=== PATIENT | female | born 1995 | race Two or more races ===

== ENCOUNTER 2018-06-17 13:29 | Emergency (ER) | payer MEDICAID ==
[~2018-06-17] VITALS: Ht 154.9 cm; Wt 61.2 kg
[2018-06-17] MEDS ORDERED: Ketorolac 30mg Inj IM ONE (14:15)
--- NOTE | 2018-06-17 14:28 | Emergency Room Report ---
History of Present Illness General Chief Complaint: Lower Extremity Injury Source: Patient Present Illness HPI 22-year-old female patient presents ER BIB ambulance complaining of right knee pain. Patient reports pain began yesterday while she was at home dancing. Reports she was drinking and does not remember exactly when knee injury occurred. Josefina hitting head or loss of consciousness. Denies vomiting or vision changes. Reports pain with ambulation. Reports swelling right knee. Reports that her knee "gave out". Denies fever, chest pain, SOB. Allergies: Coded Allergies: No Known Allergies (Unverified , 06/17/18) Patient History Past Medical History: see triage record Last Menstrual Period: depo Now: No Reviewed Nursing Documentation: PMH: Agreed; PSxH: Agreed Nursing Documentation-PMH Past Medical History: No Stated History Review of Systems All Other Systems: negative except mentioned in HPI Physical Exam Vital Signs Date Time Temp Pulse Resp B/P (MAP) Pulse Ox O2 Delivery O2 Flow Rate FiO2 06/17/18 13:36 98.1 100 20 89/66 98 Room Air Sp02 EP Interpretation: reviewed, normal General Appearance: well appearing, no apparent distress, alert, GCS 15, non- toxic Head: normocephalic, atraumatic Eyes: bilateral eye normal inspection, bilateral eye PERRL ENT: hearing grossly normal, normal pharynx, no angioedema, normal voice, uvula midline, moist mucus membranes Neck: full range of motion Respiratory: lungs clear, normal breath sounds, no rhonchi, no respiratory distress, no accessory muscle use, no wheezing, speaking full sentences Cardiovascular #1: regular rate, rhythm, no edema Cardiovascular #2: 2+ dorsalis pedis (R), 2+ dorsalis pedis (L) Musculoskeletal: back normal, digits/nails normal, gait/station normal, decreased range of motion - secondary to pain, swelling - mild, other - NVI, patella tendon intact, no erythema, no ecchymosis, no warmth, no deformity, no laxity with varus or valgus stress, tender - right knee Neurologic: alert, oriented x3, responsive, motor strength/tone normal, sensory intact Psychiatric: mood/affect normal Skin: no rash Lymphatic: no adenopathy Medical Decision Making PA Attestation Dr. Menon is my supervising Physician whom patient management has been discussed with. Diagnostic Impression: Primary Impression: Acute injury of right anterior cruciate ligament ER Course Pt. presents to the ED c/o right knee pain. Ddx considered but are not limited to fracture, sprain, strain, contusion, dislocation. No erythema, no warmth to touch, no fever, nontoxic appearing, low suspicion for septic joint. Soft compartments, no pulselessness, no pallor, no paresthesias, low suspicion for compartment syndrome at this time. Vital signs: are WNL, pt. is afebrile Ordered X-ray and pain medication. ER COURSE Provided with pain medication. An X-ray of the no acute fracture or disease per the preliminary reading. Like ACL injury, followup with PCP for MRI imaging. Knee immobilizer was applied to the right knee and was checked afterwards by me showing good alignment and support with distal neurovascular functioning intact. Crutches provided. Patient instructed on RICE method: rest, ice, compression, elevation. Patient instructed on rest, ice and heat. Patient instructed to be NWB Contact information for orthopedic urgent care provided, follow-up with urgent care if unable to followup with primary care provider and get referral to network and threat support specialist. Followup with primary care provider. Discuss referral to ortho/pain management/ PT as needed. Discuss further imaging with MRI/CT as needed. Patient seen and evaluated by Dr. Menon, agrees with assessment and treatment plan. DISCHARGE: -Rx provided for Tylenol for pain symptoms. At this time pt. is stable for d/c to home. Patient is resting comfortably, in no acute distress, nontoxic appearing, talking without difficulty. Will provide printed patient care instructions, and any necessary prescriptions. Patient instructed to follow with primary care provider in 3 - 5 days and to request further follow-up as needed. Care plan and follow up instructions have been discussed with the patient prior to discharge. Take medications as directed. Patient questions asked and answered. Patient reports understanding and agreement to treatment plan. ER precautions given, patient instructed to return to ER immediately for any new or worsening of symptoms. - Please note that this Emergency Department Report was dictated using [employer] attendant technology software, occasionally this can lead to erroneous entry secondary to interpretation by the dictation equipment. Other X-Ray Diagnostic Results Other X-Ray Diagnostic Results : X-Ray ordered: right knee PA Scribe Text Fabian Prieto PA-C Last Vital Signs Date Time Temp Pulse Resp B/P (MAP) Pulse Ox O2 Delivery O2 Flow Rate FiO2 11/15/18 13:36 98.1 100 20 89/66 98 Room Air Disposition: HOME, SELF-CARE Condition: Stable Scripts Acetaminophen* (TYLENOL EXTRA STRENGTH*) 500 Mg Tablet 500 MG ORAL Q8H PRN for Prn Headache/Temp > 101, #30 TAB 0 Refills Prov: Jayson Prieto 06/17/18 Patient Instructions: Anterior Cruciate Ligament Tear With Rehab-[facility] Additional Instructions: Patient instructed to follow up with primary care provider and discuss further referral to orthopedics/physical therapy/pain management as needed. If unable to followup with PCP, followup with orthopedic urgent care in 5-7 days , call to schedule appointment. Patient instructed on RICE method: rest, ice, compression, elevation. Patient instructed to NWB. Take medications as directed. Patient questions asked and answered. ER precautions given, patient instructed to return to ER immediately for any new or worsening of symptoms. [facility] [address] [facility] [address] [facility], [id number] [email or web address] Jayson Prieto Jun 17, 2018 14:28
[2018-06-17] MEDS ORDERED: TYLENOL EXTRA500 MG ORAL (14:51)
[2018-06-17 15:06] VITALS: BP 89/66
--- NOTE | 2018-06-17 15:26 | Diagnostic Imaging Report ---
Indications: Knee pain Technique: Three views of the right knee Comparison: None Findings: No acute fractures. No dislocations. Joint spaces are preserved. No radiopaque foreign body. Normal mineralization. Impression: No acute process
== END 2018-06-17 15:30 | disposition home or self-care (01) ==
LOC: EMR 14:10
DX: S89.81XA Other specified injuries of right lower leg, initial encounter (principal); X58.XXXA Exposure to other specified factors, initial encounter; Y92.9 Unspecified place or not applicable
CPT/HCPCS: 73562; 96372; 99284; J1885

== ENCOUNTER 2019-04-09 11:50 | Emergency (ER) | payer MEDICAID ==
[~2019-04-09] VITALS: Ht 154.9 cm; Wt 55.3 kg
[~2019-04-09 11:50] MED LIST: TYLENOL EXTRA500 MG ORAL
[2019-04-09 11:58] VITALS: BP 118/74
[2019-04-09] MEDS ORDERED: NKM (12:01)
--- NOTE | 2019-04-09 12:04 | NUR ---
ED Nurse Note: Patient presents to ER due to movable lump in the lower lip. Patient states she noticed it today. Reports no pain.
--- NOTE | 2019-04-09 12:31 | Emergency Room Report ---
History of Present Illness General Chief Complaint: Skin Rash/Abscess Source: Patient Present Illness HPI 23 YO Female presents to the emergency department complaining of 2 out of 10 severity tender, swollen, palpable lump on the inner left side of the lower lip that she just noticed today. Patient is also requesting medication for BV she states she is having symptoms with which she has experienced in the past with some malodorous milky white discharge. Patient denies suspicion of STI. Patient denies or suspicion of . She denies urinary frequency, urgency, hematuria or dysuria. She denies fevers, chills, abdominal pain or tenderness. Patient denies night sweats or significant weight loss. Patient denies trauma to the mouth. She denies rashes. Allergies: Coded Allergies: No Known Allergies (Unverified , 06/17/18) Patient History Past Medical History: see triage record Past Surgical History: none Pertinent Family History: none Last Menstrual Period: Depo shot Now: No Immunizations: UTD Reviewed Nursing Documentation: PMH: Agreed; PSxH: Agreed Nursing Documentation-PMH Past Medical History: No History, Except For Hx Cardiac Problems: No - 'skin condition' Hx Hypertension: No Hx Pacemaker: No Hx Asthma: No Hx COPD: No Hx Diabetes: No Hx Cancer: No Hx Gastrointestinal Problems: No Hx Dialysis: No History Of Psychiatric Problem: No Hx Neurological Problems: No Hx Cerebrovascular Accident: No Hx Seizures: No Review of Systems All Other Systems: negative except mentioned in HPI Physical Exam Vital Signs Date Time Temp Pulse Resp B/P (MAP) Pulse Ox O2 Delivery O2 Flow Rate FiO2 04/09/19 11:58 98.4 16 118/74 96 Room Air 04/09/19 11:58 91 Sp02 EP Interpretation: reviewed, normal General Appearance: no apparent distress, alert, GCS 15, non-toxic Head: normocephalic, atraumatic Eyes: bilateral eye normal inspection, bilateral eye PERRL ENT: hearing grossly normal, normal voice, other - small 0.4cm palpable clear papule on the buccal surface of the lower lip on the left side. No erythema, no purulence, not tender. Neck: full range of motion Respiratory: lungs clear, normal breath sounds, no wheezing, speaking full sentences Cardiovascular #1: regular rate, rhythm Gastrointestinal: soft Genitourinary: normal inspection, no CVA tenderness, deferred Musculoskeletal: back normal, gait/station normal, normal range of motion, non- tender Neurologic: alert, oriented x3, responsive, motor strength/tone normal, sensory intact, speech normal, grossly normal Psychiatric: judgement/insight normal Lymphatic: no adenopathy Medical Decision Making PA Attestation Dr. Wolfe is my supervising Physician whom patient management has been discussed with. Diagnostic Impression: Primary Impression: Mucocele of lower lip Additional Impression: Bacterial vaginosis ER Course 23 YO Female presents to the emergency department complaining of 2 out of 10 severity tender, swollen, palpable lump on the inner left side of the lower lip that she just noticed today. Patient is also requesting medication for BV she states she is having symptoms with which she has experienced in the past with some malodorous milky white discharge. Patient denies suspicion of STI. Patient denies or suspicion of . She denies urinary frequency, urgency, hematuria or dysuria. She denies fevers, chills, abdominal pain or tenderness. Patient denies night sweats or significant weight loss. Patient denies trauma to the mouth. She denies rashes. Ddx considered but are not limited to oral herpes, cold sore, lipoma, gum abscess, UTi , Pyelo, STI, Stone, Cystitis, vaginal laceration, vaginitis. Vital signs: are WNL, pt. is afebrile H& PE are most consistent with: benign labial lipoma/ vein and Vaginitis ORDERS: - none required at this time, Dx is made clinically. ED INTERVENTIONS: DISCHARGE: At this time pt. is stable for d/c to home. Will provide printed patient care instructions, and any necessary prescriptions. Care plan and follow up instructions have been discussed with the patient prior to discharge. discussed with the patient prior to discharge. Last Vital Signs Date Time Temp Pulse Resp B/P (MAP) Pulse Ox O2 Delivery O2 Flow Rate FiO2 04/09/19 11:58 98.4 91 16 118/74 (89) 96 Room Air Disposition: HOME, SELF-CARE Condition: Stable Scripts Metronidazole* (FLAGYL*) 500 Mg Tablet 500 MG ORAL BID for 7 Days, #14 TAB Prov: Moni Hutchison 04/09/19 Ibuprofen* (MOTRIN*) 400 Mg Tablet 400 MG ORAL THREE TIMES A DAY, #30 TAB 0 Refills Prov: Moni Hutchison 04/09/19 Referrals: NOT CHOSEN IPA/,REFERRING (PCP) Patient Instructions: Bacterial Vaginosis, [id number] Additional Instructions: Take medications as directed. Follow up with a Primary Care Provider in 3-5 days, even if your symptoms have resolved. --Please review list of primary care clinics, if you do not already have a primary care provider Return sooner to ED if new symptoms occur, or current symptoms become worse. - Please note that this Emergency Department Report was dictated using Application [employer] getter technology software, occasionally this can lead to erroneous entry secondary to interpretation by the dictation equipment. Moni Hutchison Apr 09, 2019 12:31
--- NOTE | 2019-04-09 12:32 | NUR ---
ED Nurse Note: PT SITTING PEACEFULLY IN CHAIR IN NAD. AOX4. PRESCRIPTIONS AND DISCHARGE PAPERWORK EXPLAINED TO PT. PT VERBALIZES UNDERSTANDING AND ALL QUESTIONS ANSWERED. PRESCRIPTIONS AND DISCHARGE PAPERWORK GIVEN TO PT AND ID WRISTBAND REMOVED. PT WALKED OUT OF ER WITH STEADY GAIT AND ALL BELONGINGS.
--- NOTE | 2019-04-09 12:32 | NUR ---
Note torsten in EDM - 04/09/19 at 1241 by BRADLY ED Nurse Note: PT SITTING PEACEFULLY IN CHAIR IN NAD. AOX4. DISCHARGE PAPERWORK EXPLAINED TO PT. PT VERBALIZES UNDERSTANDING AND ALL QUESTIONS ANSWERED. DISCHARGE PAPERWORK GIVEN TO PT AND ID WRISTBAND REMOVED. PT WALKED OUT OF ER WITH STEADY GAIT AND ALL BELONGINGS.
[2019-04-09 12:33] VITALS: BP 122/76
[2019-04-09] MEDS ORDERED: IBUPROFEN400 MG ORAL (12:33)
[2019-04-09] MEDS ORDERED: METRONIDAZOLE500 MG ORAL (12:33)
== END 2019-04-09 12:41 | disposition home or self-care (01) ==
LOC: EMR 12:13
DX: K11.6 Mucocele of salivary gland (principal); N76.0 Acute vaginitis
CPT/HCPCS: 99282

== ENCOUNTER 2019-06-01 20:55 | Emergency (ER) | payer MEDICAID ==
[~2019-06-01] VITALS: Ht 154.9 cm; Wt 54.4 kg
[~2019-06-01 20:55] MED LIST changes: +IBUPROFEN400 MG ORAL; +METRONIDAZOLE500 MG ORAL; +NKM
[2019-06-01 21:10] VITALS: BP 113/78
--- NOTE | 2019-06-01 21:10 | NUR ---
ED Nurse Note: Pt ambulated to ED from home c/o symtoms of BV, urine is dark orange, educated pt that her partner needed to be treated as well to not be reinfected
--- NOTE | 2019-06-01 21:19 | Emergency Room Report ---
History of Present Illness General Chief Complaint: Female Urogenital Problems Source: Patient Present Illness HPI 23-year-old female, presents with cough, congestion x1 week, no fevers no chills no shortness of breath, no aggravating relieving factors severity is mild , patient is requesting a chest x-ray. Furthermore, patient is requesting treatment for bacterial vaginosis, patient does not want a vaginal exam she states that she just wants her prescription, she states she is been having some vaginal discharge, similar to when she had bacterial vaginosis. Allergies: Coded Allergies: No Known Allergies (Unverified , 06/17/18) Patient History Past Medical History: see triage record Social History: Reports: smoking Now: No - depovera Reviewed Nursing Documentation: PMH: Agreed; PSxH: Agreed Nursing Documentation-PMH Past Medical History: No Stated History Hx Cardiac Problems: No - 'skin condition' Hx Hypertension: No Hx Pacemaker: No Hx Asthma: No Hx COPD: No Hx Diabetes: No Hx Cancer: No Hx Gastrointestinal Problems: No Hx Dialysis: No Hx Neurological Problems: No Hx Cerebrovascular Accident: No Hx Seizures: No Review of Systems All Other Systems: negative except mentioned in HPI Physical Exam Vital Signs Date Time Temp Pulse Resp B/P (MAP) Pulse Ox O2 Delivery O2 Flow Rate FiO2 06/01/19 21:03 98.4 70 14 113/78 (90) 94 Room Air Sp02 EP Interpretation: reviewed, normal General Appearance: well appearing, no apparent distress, alert Head: normocephalic, atraumatic Eyes: bilateral eye PERRL, bilateral eye EOMI ENT: uvula midline, moist mucus membranes, nasal congestion Neck: supple, thyroid normal, supple/symm/no masses Respiratory: lungs clear, no respiratory distress, no retraction, no accessory muscle use Cardiovascular #1: normal peripheral pulses, regular rate, rhythm, no edema, no gallop, no murmur Gastrointestinal: non tender, soft, no guarding, no rebound Musculoskeletal: normal inspection Neurologic: alert, oriented x3 Psychiatric: mood/affect normal Skin: no rash, warm/dry Medical Decision Making Diagnostic Impression: Primary Impression: Bacterial vaginosis Additional Impression: Cough ER Course 23-year-old female presents with cough, differential diagnosis includes pneumonia, URI, postnasal drip low suspicion for emergent pathology at this point Chest x-ray negative, symptomatic control Patient wants prescription for metronidazole will provide it Disposition home with return precautions Chest X-Ray Diagnostic Results Chest X-Ray Diagnostic Results : Chest X-Ray Ordered: Yes # of Views/Limited/Complete: 1 View Indication: Chest Pain EP Interpretation: Yes Interpretation: no consolidation, no effusion, no pneumothorax, no acute cardiopulmonary disease Impression: No acute disease Electronically Signed by: Coleman Franklin MD Last Vital Signs Date Time Temp Pulse Resp B/P (MAP) Pulse Ox O2 Delivery O2 Flow Rate FiO2 06/01/19 21:03 98.4 70 14 113/78 (90) 94 Room Air Disposition: HOME, SELF-CARE Condition: Stable Scripts Metronidazole* (FLAGYL*) 500 Mg Tablet 500 MG ORAL BID for 7 Days, #14 TAB Prov: Coleman Franklin MD 06/01/19 Referrals: [facility] Patient Instructions: Bacterial Vaginosis, [id number], Upper Respiratory Infection, Adult, [id number] Additional Instructions: The patient was provided with discharge instructions, notified to follow-up with a primary care doctor and or specialist in the next 24-48 hours, and to return to the ED if they have worsening of their symptoms. Please note that this report is being documented using [employer] technology. This can lead to erroneous entry secondary to incorrect interpretation by the dictating instrument. Coleman Franklin MD Jun 01, 2019 21:19
[2019-06-01] MEDS ORDERED: METRONIDAZOLE500 MG ORAL (21:23)
[2019-06-01 22:00] VITALS: BP 113/78
--- NOTE | 2019-06-01 22:00 | NUR ---
ER DISCHARGE NOTE: Patient is cleared to be discharged per ERMD, pt is aox4, on room air, with stable vital signs. pt was given dc and prescription instructions, pt was able to verbalize understanding, pt id band removed. pt is able to ambulate with steady gait. pt took all belongings.
--- NOTE | 2019-06-02 11:21 | Diagnostic Imaging Report ---
Indication: Cough Comparison: None A single view chest radiograph was obtained. Findings: Cardiomediastinal appearance is within normal limits for age. The lungs are clear. Pulmonary vascularity is appropriate. The diaphragmatic contour is smooth and costophrenic angles are sharp. No pleural effusions are identified. The bones are unremarkable. Impression: No acute findings
== END 2019-06-01 22:00 | disposition home or self-care (01) ==
LOC: EMR 21:54
DX: R05 Cough (principal); N76.0 Acute vaginitis; F17.200 Nicotine dependence, unspecified, uncomplicated; R07.9 Chest pain, unspecified
CPT/HCPCS: 71045; 81025; Z7502; 99283

== ENCOUNTER 2019-06-20 15:54 | Emergency (ER) | payer MEDICAID ==
[~2019-06-20] VITALS: Ht 154.9 cm; Wt 54.9 kg
[2019-06-20 16:10] VITALS: BP 110/66
--- NOTE | 2019-06-20 16:10 | NUR ---
ED Nurse Note: Pt AAOX4, VSS< No acute distress. Pt ia cooperative and well groomed. Pt states pain is 0/10, but when she drinks it is a 7/10. PT AMBULATED TO ED C/O RLQ ABDOMEN PAIN X 3 DAYS, DENIES NAUSEA VOMITING
--- NOTE | 2019-06-20 16:20 | NUR ---
ED Nurse Note: Blood work sent to lab.
--- NOTE | 2019-06-20 16:40 | NUR ---
ED Nurse Note: Pt urine sent to lab.
[2019-06-20 16:58] LABS: BASOPHILS % (AUTO) 0.9 % (0.0-2.0); HEMATOCRIT 37.5 % (37.0-47.0); HEMOGLOBIN 12.6 G/DL (12.0-16.0); MEAN CORPUSCULAR VOLUME 93 FL (80-99); MONOCYTES % (AUTO) 6.2 % (1.0-10.0); NEUTROPHILS % (AUTO) 53.8 % (45.0-75.0); PLATELET COUNT 246 K/UL (150-450); RED BLOOD COUNT 4.04 M/UL (4.20-5.40); RED CELL DISTRIBUTION WIDTH 11.4 % (11.6-14.8); WHITE BLOOD COUNT 7.4 K/UL (4.8-10.8)
[2019-06-20 17:12] LABS: ANION GAP 8 mmol/L (5-15); BLOOD UREA NITROGEN 10 mg/dL (7-18); CALCIUM 7.9 MG/DL (8.5-10.1); CARBON DIOXIDE 28 MMOL/L (21-32); CHLORIDE 105 MMOL/L (98-107); CREATININE 0.7 MG/DL (0.55-1.30); POTASSIUM 3.8 MMOL/L (3.5-5.1); SODIUM 141 MMOL/L (136-145)
[2019-06-20 17:17] LABS: ALANINE AMINOTRANSFERASE 34 U/L (12-78); ALBUMIN 3.6 G/DL (3.4-5.0); ALBUMIN/GLOBULIN RATIO 1.4 (1.0-2.7); ALKALINE PHOSPHATASE 38 U/L (46-116); ASPARTATE AMINO TRANSFERASE 17 U/L (15-37); BILIRUBIN,TOTAL 0.3 MG/DL (0.2-1.0)
[2019-06-20 17:32] LABS: APPEARANCE,URINE SLIGHTLY CLOUDY; BILIRUBIN, URINE NEGATIVE (NEGATIVE); COLOR,URINE PALE YELLOW; GLUCOSE, URINE (UA) NEGATIVE (NEGATIVE); KETONES,URINE NEGATIVE (NEGATIVE); LEUKOCYTE ESTERASE ,URINE 2+ (NEGATIVE); NITRITE,URINE NEGATIVE (NEGATIVE); PH,URINE 6.5 (4.5-8.0); PROTEIN,URINE NEGATIVE (NEGATIVE); UROBILINOGEN,URINE NORMAL MG/DL (0.0-1.0)
[2019-06-20] MEDS ORDERED: BACTRIM DS TAB1 EAC1 ORAL (17:58)
[2019-06-20] MEDS ORDERED: METROGEL-VAGINA70 G1 VAGIN (17:58)
[2019-06-20 18:12] VITALS: BP 106/70
--- NOTE | 2019-06-20 18:12 | NUR ---
ER DISCHARGE NOTE: Patient is cleared to be discharged per ERMD, pt is aox4, on room air, with stable vital signs. pt was given dc and prescription instructions, pt was able to verbalize understanding, pt id band removed without complications. pt is able to ambulate with steady gait. pt took all belongings. Pt states pain is 0/10.
--- NOTE | 2019-06-20 18:58 | Emergency Room Report ---
History of Present Illness General Chief Complaint: Abdominal Pain Source: Patient Present Illness HPI Patient presents with complaints of lower abdominal discomfort Initially reports bilateral however does also report right lower quadrant pain patient also felt that she was losing Circulation her left large toe Patient also reports that she has bacterial vaginosis and it feels consistent with her previous one with complaints of vaginal discharge Denies any fevers or chills denies any vomiting or diarrhea Currently in the emergency room reports that the pain has improved and did start her menstrual cycle today Denies any flank pain patient is sexually active Allergies: Coded Allergies: No Known Allergies (Unverified , 06/17/18) Patient History Past Medical History: see triage record Last Menstrual Period: DEPO SHOT Reviewed Nursing Documentation: PMH: Agreed; PSxH: Agreed Nursing Documentation-PMH Past Medical History: No Stated History Hx Cardiac Problems: No - 'skin condition' Hx Hypertension: No Hx Pacemaker: No Hx Asthma: No Hx COPD: No Hx Diabetes: No Hx Cancer: No Hx Gastrointestinal Problems: No Hx Dialysis: No Hx Neurological Problems: No Hx Cerebrovascular Accident: No Hx Seizures: No Review of Systems All Other Systems: negative except mentioned in HPI Physical Exam Vital Signs Date Time Temp Pulse Resp B/P (MAP) Pulse Ox O2 Delivery O2 Flow Rate FiO2 06/20/19 16:01 98.2 66 16 109/71 (84) 99 Room Air Sp02 EP Interpretation: reviewed, normal General Appearance: well appearing, no apparent distress Head: normocephalic, atraumatic Eyes: bilateral eye PERRL, bilateral eye EOMI ENT: hearing grossly normal, normal pharynx, TMs + canals normal, uvula midline Neck: full range of motion, supple, no meningismus, no bony tend Respiratory: lungs clear, normal breath sounds, no rhonchi, no respiratory distress, no retraction, no accessory muscle use Cardiovascular #1: normal peripheral pulses, regular rate, rhythm, no edema, no gallop, no JVD, no murmur Gastrointestinal: normal bowel sounds, non tender, soft, no mass, no organomegaly, non-distended, no guarding, no hernia, no pulsatile mass, no rebound Genitourinary: no CVA tenderness Musculoskeletal: normal inspection Neurologic: oriented x3, responsive, electrical electronics engineer III-XII nml as tested, motor strength/ tone normal, sensory intact Psychiatric: mood/affect normal Lymphatic: normal inspection, no adenopathy Medical Decision Making Diagnostic Impression: Primary Impression: uti Additional Impressions: vaginosis Abdominal pain ER Course With the patient's history and examination, multiple differentials considered, including but not limited to , ectopic , ovarian torsion, gastritis, cholecystitis, pancreatitis, appendicitis Patient's abdominal exam reveals a very soft and benign abdomen Initial blood work is appropriate with normal white blood cell count patient has had the discomfort for the past several days Urine sample does show infectious process Patient is afebrile does not appear septic or toxic other differential such as PID entertained however does not appear to be consistent with the patient's Clinical history and exam Patient is treated clinically with regards to her vaginal discharge complaint At the end of the evaluation patient does question appendix evaluation Given the repeat abdominal exam the benign process given the patient's extensive work-up with lack of any other finding patient will have close outpatient Follow-up with return with any worsening symptoms fevers or other concerns Labs Test 06/20/19 16:48 06/20/19 17:07 White Blood Count 7.4 K/UL (4.8-10.8) Red Blood Count 4.04 M/UL (4.20-5.40) Hemoglobin 12.6 G/DL (12.0-16.0) Hematocrit 37.5 % (37.0-47.0) Mean Corpuscular Volume 93 FL (80-99) Mean Corpuscular Hemoglobin 31.2 PG (27.0-31.0) Mean Corpuscular Hemoglobin Concent 33.7 G/DL (32.0-36.0) Red Cell Distribution Width 11.4 % (11.6-14.8) Platelet Count 246 K/UL (150-450) Mean Platelet Volume 4.7 FL (6.5-10.1) Neutrophils (%) (Auto) 53.8 % (45.0-75.0) Lymphocytes (%) (Auto) 36.0 % (20.0-45.0) Monocytes (%) (Auto) 6.2 % (1.0-10.0) Eosinophils (%) (Auto) 3.0 % (0.0-3.0) Basophils (%) (Auto) 0.9 % (0.0-2.0) Sodium Level 141 MMOL/L (136-145) Potassium Level 3.8 MMOL/L (3.5-5.1) Chloride Level 105 MMOL/L (98-107) Carbon Dioxide Level 28 MMOL/L (21-32) Anion Gap 8 mmol/L (5-15) Blood Urea Nitrogen 10 mg/dL (7-18) Creatinine 0.7 MG/DL (0.55-1.30) Estimat Glomerular Filtration Rate > 60 mL/min (>60) Glucose Level 78 MG/DL (74-106) Calcium Level 7.9 MG/DL (8.5-10.1) Total Bilirubin 0.3 MG/DL (0.2-1.0) Aspartate Amino Transf (AST/SGOT) 17 U/L (15-37) Alanine Aminotransferase (ALT/SGPT) 34 U/L (12-78) Alkaline Phosphatase 38 U/L (46-116) Total Protein 6.2 G/DL (6.4-8.2) Albumin 3.6 G/DL (3.4-5.0) Globulin 2.6 g/dL Albumin/Globulin Ratio 1.4 (1.0-2.7) Lipase 235 U/L (73-393) Urine Color Pale yellow Urine Appearance Slightly cloudy Urine pH 6.5 (4.5-8.0) Urine Specific [place] 1.015 (1.005-1.035) Urine Protein Negative (NEGATIVE) Urine Glucose (UA) Negative (NEGATIVE) Urine Ketones Negative (NEGATIVE) Urine Blood 3+ (NEGATIVE) Urine Nitrite Negative (NEGATIVE) Urine Bilirubin Negative (NEGATIVE) Urine Urobilinogen Normal MG/DL (0.0-1.0) Urine Leukocyte Esterase 2+ (NEGATIVE) Urine RBC 10-15 /HPF (0 - 2) Urine WBC 5-10 /HPF (0 - 2) Urine Squamous Epithelial Cells Moderate /LPF (NONE/OCC) Urine Bacteria Few /HPF (NONE) Urine HCG, Qualitative Negative (NEGATIVE) Last Vital Signs Date Time Temp Pulse Resp B/P (MAP) Pulse Ox O2 Delivery O2 Flow Rate FiO2 06/20/19 18:12 98.2 15 106/70 100 Room Air 06/20/19 16:10 70 Status: improved Disposition: HOME, SELF-CARE Condition: Improved Scripts Metronidazole* (METROGEL-VAGINAL*) 70 Gm Gel.w.appl 1 APPL VAGIN EVERY 12 HOURS for 7 Days, #70 GM Prov: Anisa Wolfe DO 06/20/19 Trimethoprim/Sulfamethoxazole 160/800* (BACTRIM DS TABLET*) 1 Each Tablet 1 TAB ORAL Q12H, #14 TAB 0 Refills Prov: Anisa Wolfe DO 06/20/19 Referrals: NOT CHOSEN IPA/,REFERRING (PCP) [facility] Patient Instructions: Bacterial Vaginosis, [id number], Urinary Tract Infection, [id number], Abdominal Pain, Adult Additional Instructions: Patient is provided with the discharge instructions notified to follow up with primary doctor in the next 2-3 days otherwise return to the er with any worsening symptoms. Please note that this report is being documented using [employer] technology. This can lead to erroneous entry secondary to incorrect interpretation by the dictating instrument. Anisa Wolfe DO Jun 20, 2019 18:58
== END 2019-06-20 18:12 | disposition home or self-care (01) ==
LOC: EMR 16:27
DX: N39.0 Urinary tract infection, site not specified (principal); N76.0 Acute vaginitis; R10.30 Lower abdominal pain, unspecified
CPT/HCPCS: 36415; 80053; 81003; 81025; 83690; 85025; Z7502; 99283

== ENCOUNTER 2019-07-10 14:45 | Emergency (ER) | payer MEDICAID ==
[~2019-07-10] VITALS: Ht 154.9 cm; Wt 54.4 kg
[~2019-07-10 14:45] MED LIST changes: +BACTRIM DS TAB1 EAC1 ORAL; +METROGEL-VAGINA70 G1 VAGIN
[2019-07-10] MEDS ORDERED: Azithromycin 250mg tab ORAL ONE (15:15)
[2019-07-10] MEDS ORDERED: Lidocaine 1% MPF 10mg/ml 5ml INJ ONE (15:15)
[2019-07-10 15:20] VITALS: BP 100/82
[2019-07-10 15:20] LABS: APPEARANCE,URINE SLIGHTLY CLOUDY; BILIRUBIN, URINE NEGATIVE (NEGATIVE); COLOR,URINE PALE YELLOW; GLUCOSE, URINE (UA) NEGATIVE (NEGATIVE); KETONES,URINE 4+ (NEGATIVE); LEUKOCYTE ESTERASE ,URINE 2+ (NEGATIVE); NITRITE,URINE NEGATIVE (NEGATIVE); PH,URINE 6 (4.5-8.0); PROTEIN,URINE NEGATIVE (NEGATIVE); UROBILINOGEN,URINE 1 MG/DL (0.0-1.0)
--- NOTE | 2019-07-10 15:33 | Emergency Room Report ---
History of Present Illness General Chief Complaint: Vaginal Source: Patient Present Illness HPI 23-year-old female with history of recurrent bacterial vaginosis here complaining of vaginal discharge x2 days. Patient reports that every time that she is sexually active with the same partner she starts having 2 months ago and she was negative. She is describing her vaginal discharge that is yellow and clear. Denies vaginal pruritus, pain, ulceration. Denies urinary frequency and urgency. Has not taken medication for symptom relief. Last menstrual period was 2 weeks ago and regular. Denies abdominal pain, nausea vomiting, no other associated symptoms. Allergies: Coded Allergies: No Known Allergies (Unverified , 06/17/18) Patient History Past Medical History: see triage record Past Surgical History: unable to obtain Pertinent Family History: none Social History: Reports: smoking Last Menstrual Period: 07/06/19 Now: No Immunizations: UTD Reviewed Nursing Documentation: PMH: Agreed; PSxH: Agreed Nursing Documentation-PMH Hx Cardiac Problems: No - 'skin condition' Hx Hypertension: No Hx Pacemaker: No Hx Asthma: No Hx COPD: No Hx Diabetes: No Hx Cancer: No Hx Gastrointestinal Problems: No Hx Dialysis: No Hx Neurological Problems: No Hx Cerebrovascular Accident: No Hx Seizures: No Review of Systems All Other Systems: negative except mentioned in HPI Physical Exam Vital Signs Date Time Temp Pulse Resp B/P (MAP) Pulse Ox O2 Delivery O2 Flow Rate FiO2 07/10/19 14:50 98.1 81 19 104/78 (87) 98 Room Air Sp02 EP Interpretation: reviewed, normal General Appearance: no apparent distress, alert, GCS 15, non-toxic Head: normocephalic, atraumatic Eyes: bilateral eye normal inspection, bilateral eye PERRL ENT: hearing grossly normal, normal pharynx, no angioedema, normal voice Neck: full range of motion, supple/symm/no masses Respiratory: chest non-tender, lungs clear, normal breath sounds, no rhonchi, no wheezing, speaking full sentences Cardiovascular #1: regular rate, rhythm, no edema, no murmur Gastrointestinal: non tender, soft Rectal: deferred Genitourinary: no CVA tenderness Musculoskeletal: back normal, normal range of motion, gait/station normal, non- tender Neurologic: alert, motor strength/tone normal, oriented x3, sensory intact, responsive, speech normal Psychiatric: judgement/insight normal, memory normal, mood/affect normal, no suicidal/homicidal ideation Skin: no rash Lymphatic: no adenopathy Medical Decision Making PA Attestation All my diagnosis and treatment plans were reviewed ad discussed with my supervising physician Dr. Rivas Diagnostic Impression: Primary Impression: Vaginitis Additional Impression: UTI (urinary tract infection) ER Course 23-year-old female with history of recurrent bacterial vaginosis here complaining of vaginal discharge x2 days. Patient reports that every time that she is sexually active with the same partner she starts having 2 months ago and she was negative. She is describing her vaginal discharge that is yellow and clear. Denies vaginal pruritus, pain, ulceration. Denies urinary frequency and urgency. Has not taken medication for symptom relief. Last menstrual period was 2 weeks ago and regular. Denies abdominal pain, nausea vomiting, no other associated symptoms. Ddx considered but are not limited to: vaginitis, yeast infection, BV, chlamydia , Gonorrhea, syphilis, HIV, herpes 1 or 2, Ddx considered but are not limited to : UTI, pylonephritis, urinary incontinence, prolapsed bladder Vital signs: are WNL, pt. is afebrile H&PE are most consistent with: Vaginitis, UTI ORDERS: UA, urine cx, urine test, Flagyl ED INTERVENTIONS: Rocephin, azithromycin, as patient agrees to be prophylactically treated for sexually transmitted diseases. DISCHARGE: At this time pt. is stable for d/c to home. Will provide printed patient care instructions, and any necessary prescriptions. Care plan and follow up instructions have been discussed with the patient prior to discharge. Patient to follow-up with her primary care provider and also go to women's clinic as well as [facility] clinics for testing. Patient was given the same information prior to today's visit however never followed up. Also advised patient to follow-up with her shot dropper for recurrent bacterial vaginosis infections. If worsening symptoms return to the emergency room. Last Vital Signs Date Time Temp Pulse Resp B/P (MAP) Pulse Ox O2 Delivery O2 Flow Rate FiO2 07/10/19 14:50 98.1 81 19 104/78 (87) 98 Room Air Disposition: HOME, SELF-CARE Condition: Stable Scripts Metronidazole* (FLAGYL*) 500 Mg Tablet 500 MG ORAL BID for 7 Days, #14 TAB Prov: Dennise Mendoza 07/10/19 Patient Instructions: Vaginitis, [id number] Additional Instructions: Take medication as directed, avoid drinking alcohol while taking this medication. Follow-up with her shot dropper due to recurrent bacterial vaginosis infection. Dennise Mendoza Jul 10, 2019 15:33
[2019-07-10] MEDS ORDERED: METRONIDAZOLE500 MG ORAL (15:34)
[2019-07-10 15:43] VITALS: BP 100/84
== END 2019-07-10 15:43 | disposition home or self-care (01) ==
LOC: EMR 15:15
DX: N76.0 Acute vaginitis (principal); N39.0 Urinary tract infection, site not specified
CPT/HCPCS: 81003; 81025; 87086; 96372; 96374; J0696; Q0144; Z7502; 99284

== ENCOUNTER 2019-09-25 11:49 | Emergency (ER) | payer MEDICAID ==
[~2019-09-25] VITALS: Ht 154.9 cm; Wt 59.0 kg
[2019-09-25 12:10] VITALS: BP 120/70
--- NOTE | 2019-09-25 12:10 | NUR ---
ED Nurse Note: Pt walked in from home c/o pain and "pulled muscle" to right thigh x 2 days. Pt denies injury/fall. Respirations even and unlabored on room air. Vitals stable as documented.
--- NOTE | 2019-09-25 12:25 | Emergency Room Report ---
History of Present Illness General Chief Complaint: General Complaint Source: Patient Present Illness HPI 23-year-old female presents to the emergency department with 2 complaints the first of which is 4 out of 10 severity pain and tenderness in the right thigh x2 days. Patient reports acute onset while pole dancing 2 days ago. Patient reports that she has been resting at home and massaging however her symptoms have not improved. Patient denies bruising she reports she can feel a knot in the area. Patient reports pain is worse upon movements that require her to close her legs. Patient denies pain with ambulation or bending at the hip. She denies erythema, fevers or chills. She denies history of hernias. Patient also is requesting treatment for bacterial vaginosis she states that she has been having a slight discharge with a fishy odor and states that it is consistent with symptoms in the past when she has had BV. Patient denies recent antibiotic use. Patient denies vaginal lesions or rashes. Patient is also requesting test. No other aggravating or relieving factors at this time. She denies abdominal pain or tenderness. Allergies: Coded Allergies: No Known Allergies (Unverified , 06/17/18) Patient History Past Surgical History: none Pertinent Family History: none Now: No Reviewed Nursing Documentation: PMH: Agreed; PSxH: Agreed Nursing Documentation-PMH Past Medical History: No Stated History Hx Cardiac Problems: No - 'skin condition' Hx Hypertension: No Hx Pacemaker: No Hx Asthma: No Hx COPD: No Hx Diabetes: No Hx Cancer: No Hx Gastrointestinal Problems: No Hx Dialysis: No Hx Neurological Problems: No Hx Cerebrovascular Accident: No Hx Seizures: No Review of Systems All Other Systems: negative except mentioned in HPI Physical Exam Vital Signs Date Time Temp Pulse Resp B/P (MAP) Pulse Ox O2 Delivery O2 Flow Rate FiO2 09/25/19 12:01 98.2 78 16 120/70 (87) 98 Room Air Sp02 EP Interpretation: reviewed, normal General Appearance: no apparent distress, alert, GCS 15, non-toxic Head: normocephalic, atraumatic Eyes: bilateral eye normal inspection, bilateral eye PERRL ENT: hearing grossly normal, normal voice Neck: full range of motion Respiratory: lungs clear, normal breath sounds, speaking full sentences Cardiovascular #1: regular rate, rhythm Gastrointestinal: normal bowel sounds, non tender, soft, non-distended, no guarding Genitourinary: normal inspection, no CVA tenderness, deferred - by pt. Musculoskeletal: back normal, normal range of motion, gait/station normal, tender - medial right thigh, swelling - right thigh Neurologic: alert, motor strength/tone normal, oriented x3, sensory intact, responsive, speech normal Psychiatric: judgement/insight normal Lymphatic: no adenopathy Medical Decision Making PA Attestation Dr. Casillas is my supervising Physician whom patient management has been discussed with. Diagnostic Impression: Primary Impression: Muscle injury Additional Impression: Bacterial vaginosis ER Course 23-year-old female presents to the emergency department with 2 complaints the first of which is 4 out of 10 severity pain and tenderness in the right thigh x2 days. Patient reports acute onset while pole dancing 2 days ago. Patient reports that she has been resting at home and massaging however her symptoms have not improved. Patient denies bruising she reports she can feel a knot in the area. Patient reports pain is worse upon movements that require her to close her legs. Patient denies pain with ambulation or bending at the hip. She denies erythema, fevers or chills. She denies history of hernias. Patient also is requesting treatment for bacterial vaginosis she states that she has been having a slight discharge with a fishy odor and states that it is consistent with symptoms in the past when she has had BV. Patient denies recent antibiotic use. Patient denies vaginal lesions or rashes. Patient is also requesting test. No other aggravating or relieving factors at this time. She denies abdominal pain or tenderness. Ddx considered but are not limited to Fracture, dislocation, contusion, Sprain/ Strain/Spasm Vital signs: are WNL, pt. is afebrile H&PE are most consistent with musculoskeletal injury will perform imaging to r/ o fractures/dislocations. ORDERS: - Urine HCG: negative - X-ray not required at this time - negative for fx, Dislocation, or significant soft tissue injury, per preliminary read in ED, and signed by VINAYAK Hutchison, my supervising physician has reviewed, and agrees with my interpretation. Patient is deferring pelvic exam and just wants treatment. ED INTERVENTIONS: - none required at this time DISCHARGE: At this time pt. is stable for d/c to home. Will provide printed patient care instructions, and any necessary prescriptions. Care plan and follow up instructions have been discussed with the patient prior to discharge. Labs Test 09/25/19 12:02 Urine HCG, Qualitative Negative (NEGATIVE) Last Vital Signs Date Time Temp Pulse Resp B/P (MAP) Pulse Ox O2 Delivery O2 Flow Rate FiO2 09/25/19 12:01 98.2 78 16 120/70 (87) 98 Room Air Disposition: HOME, SELF-CARE Condition: Stable Scripts Methocarbamol* (ROBAXIN-750*) 750 Mg Tablet 750 MG PO TID, #21 TAB 0 Refills Prov: Moni Hutchison 09/25/19 Ibuprofen* (MOTRIN*) 600 Mg Tablet 600 MG ORAL THREE TIMES A DAY, #30 TAB 0 Refills Prov: Moni Hutchison 09/25/19 Metronidazole* (FLAGYL*) 500 Mg Tablet 500 MG ORAL BID for 7 Days, #14 TAB Prov: Moni Hutchison 09/25/19 Patient Instructions: Bacterial Vaginosis, [id number], Muscle Strain Additional Instructions: Take medications as directed. Follow up with a Primary Care Provider in 3-5 days, even if your symptoms have resolved. --Please review list of primary care clinics, if you do not already have a primary care provider Return sooner to ED if new symptoms occur, or current symptoms become worse. Do not drink alcohol, drive, or operate heavy machinery while taking Robaxin ( Muscle Relaxers) as this may cause drowsiness. - Please note that this Emergency Department Report was dictated using [employer] technology software, occasionally this can lead to erroneous entry secondary to interpretation by the dictation equipment. Moni Hutchison Sep 25, 2019 12:25
[2019-09-25] MEDS ORDERED: IBUPROFEN600 MG ORAL (12:35)
[2019-09-25] MEDS ORDERED: ROBAXIN-750750 MG PO (12:35)
[2019-09-25] MEDS ORDERED: METRONIDAZOLE500 MG ORAL (12:35)
[2019-09-25 12:40] VITALS: BP 122/74
--- NOTE | 2019-09-25 12:40 | NUR ---
ER DISCHARGE NOTE: Patient is cleared to be discharged per ERMD, pt is aox4, on room air, with stable vital signs as documented. pt was given dc and prescription instructions and was able to verbalize understanding, pt id band removed. pt is able to ambulate with steady gait. pt took all belongings.
== END 2019-09-25 12:57 | disposition home or self-care (01) ==
LOC: EMR 12:31
DX: S76.99 Other specified injury of unspecified muscles, fascia and tendons at thigh level (principal); X58.XXXA Exposure to other specified factors, initial encounter; Y92.9 Unspecified place or not applicable; N76.0 Acute vaginitis
CPT/HCPCS: 81025; Z7502; 99282

== ENCOUNTER → 2020-01-15 | Emergency (ER) | payer MEDICAID ==
[~2020-01-15] VITALS: Ht 154.9 cm; Wt 62.6 kg
[~2020-01-15] MED LIST changes: +IBUPROFEN600 MG ORAL; +ROBAXIN-750750 MG PO
[2020-01-15 14:15] VITALS: BP 122/79
[2020-01-15 14:24] LABS: BASOPHILS % (AUTO) 0.9 % (0.0-2.0); EOSINOPHILS % (AUTO) 2.4 % (0.0-3.0); HEMOGLOBIN 11.5 G/DL (12.0-16.0); LYMPHOCYTES % (AUTO) 24.7 % (20.0-45.0); MEAN CORPUSCULAR VOLUME 98 FL (80-99); MONOCYTES % (AUTO) 6.1 % (1.0-10.0); NEUTROPHILS % (AUTO) 65.9 % (45.0-75.0); PLATELET COUNT 258 K/UL (150-450); RED BLOOD COUNT 3.68 M/UL (4.20-5.40); RED CELL DISTRIBUTION WIDTH 13.1 % (11.6-14.8); WHITE BLOOD COUNT 10.6 K/UL (4.8-10.8)
[2020-01-15 14:26] LABS: APPEARANCE,URINE SLIGHTLY CLOUDY; BILIRUBIN, URINE NEGATIVE (NEGATIVE); COLOR,URINE PALE YELLOW; GLUCOSE, URINE (UA) NEGATIVE (NEGATIVE); KETONES,URINE NEGATIVE (NEGATIVE); LEUKOCYTE ESTERASE ,URINE 3+ (NEGATIVE); NITRITE,URINE NEGATIVE (NEGATIVE); PH,URINE 8 (4.5-8.0); PROTEIN,URINE NEGATIVE (NEGATIVE); UROBILINOGEN,URINE NORMAL MG/DL (0.0-1.0)
--- NOTE | 2020-01-15 14:26 | NUR ---
ED Nurse Note: Pt walked in from home c/o abdominal pain since yesterday. Pt reports black stool in the morning. Pt is 17 weeks . Respirations even and unlabored on room air. Vitals stable as documented.
--- NOTE | 2020-01-15 14:32 | Emergency Room Report ---
History of Present Illness General Chief Complaint: Abdominal Pain Source: Patient Present Illness HPI Patient is a 24-year-old female presents after increased abdominal discomfort and dark stool. She reports having 1 episode of dark stool yesterday. Denies any current abdominal pain or cramping. Denies any leakage of fluid. Patient states she is approximately 18 weeks . She had not been feeling weak or dizzy. Denied any recent Pepto-Bismol or iron pill use. Had not been having any vomiting or diarrhea. Allergies: Coded Allergies: No Known Allergies (Unverified , 06/17/18) COVID-19 Screening Contact w/high risk pt: No Recent Travel to affected area: No Experienced COVID-19 symptoms?: No COVID-19 Testing performed SCRATCH BRUSHER: No Patient History Past Medical History: see triage record Last Menstrual Period: na Now: Yes Reviewed Nursing Documentation: PMH: Agreed; PSxH: Agreed Nursing Documentation-PMH Past Medical History: No Stated History Hx Cardiac Problems: No - 'skin condition' Hx Hypertension: No Hx Pacemaker: No Hx Asthma: No Hx COPD: No Hx Diabetes: No Hx Cancer: No Hx Gastrointestinal Problems: No Hx Dialysis: No Hx Neurological Problems: No Hx Cerebrovascular Accident: No Hx Seizures: No Review of Systems All Other Systems: negative except mentioned in HPI Physical Exam Vital Signs Date Time Temp Pulse Resp B/P (MAP) Pulse Ox O2 Delivery O2 Flow Rate FiO2 01/15/20 13:27 99.3 85 17 121/74 (90) 98 Room Air Sp02 EP Interpretation: reviewed, normal General Appearance: normal inspection, well appearing, no apparent distress, alert, GCS 15, non-toxic Head: normocephalic, atraumatic ENT: normal ENT inspection, hearing grossly normal, normal voice Neck: normal inspection, full range of motion, supple, no bony tend Respiratory: normal inspection, lungs clear, normal breath sounds, no respiratory distress, no retraction, no wheezing Cardiovascular #1: regular rate, rhythm, no edema Gastrointestinal: normal inspection, normal bowel sounds, non tender, soft, no guarding, no hernia, other - Gravid uterus Genitourinary: no CVA tenderness Musculoskeletal: normal inspection, back normal, normal range of motion Neurologic: alert, responsive, speech normal, normal inspection Psychiatric: normal inspection, judgement/insight normal, mood/affect normal Medical Decision Making Diagnostic Impression: Primary Impression: Abdominal pain Additional Impressions: Dark stools ER Course Presented for dark stools. Differential diagnosis include was not limited to gastritis, ulcer, iron supplementation among others. Because of complexity of patient's case laboratory tests and imaging studies were ordered. Patient was noted to have relatively benign exam and has nontender abdomen. Laboratory testing showed adequate hemoglobin count. Patient appears to be stable for outpatient management. Pelvic ultrasound was ordered due to patient's status. Patient will be discharged home. She is to follow-up with her [employer] for recheck. She is to return if any increased dizziness or other concerns. Patient was advised that we do not have labor and delivery services at this facility and she should not return if over 20 weeks. Patient's appears to be stable for outpatient management and was advised to have her blood counts rechecked with [employer] or primary care physician in 1 to 2 days. She is advised to return if worse. The patient is advised to follow up with primary care doctor in 1-2 days. Patient is advised to return if any worsening condition or if any changes in status that are concerning. This report is dictated with [employer] strap cutting machine operator software which may occasionally lead to discrepancies related to use of this software. Labs Test 01/15/20 14:10 White Blood Count 10.6 K/UL (4.8-10.8) Red Blood Count 3.68 M/UL (4.20-5.40) Hemoglobin 11.5 G/DL (12.0-16.0) Hematocrit 36.0 % (37.0-47.0) Mean Corpuscular Volume 98 FL (80-99) Mean Corpuscular Hemoglobin 31.2 PG (27.0-31.0) Mean Corpuscular Hemoglobin Concent 31.8 G/DL (32.0-36.0) Red Cell Distribution Width 13.1 % (11.6-14.8) Platelet Count 258 K/UL (150-450) Mean Platelet Volume 5.9 FL (6.5-10.1) Neutrophils (%) (Auto) 65.9 % (45.0-75.0) Lymphocytes (%) (Auto) 24.7 % (20.0-45.0) Monocytes (%) (Auto) 6.1 % (1.0-10.0) Eosinophils (%) (Auto) 2.4 % (0.0-3.0) Basophils (%) (Auto) 0.9 % (0.0-2.0) Last Vital Signs Date Time Temp Pulse Resp B/P (MAP) Pulse Ox O2 Delivery O2 Flow Rate FiO2 01/15/20 13:27 99.3 85 17 121/74 (90) 98 Room Air Status: improved Disposition: HOME, SELF-CARE Condition: Stable Jaison Rivas MD Jan 15, 2020 14:32
[2020-01-15 14:37] LABS: ANION GAP 8 mmol/L (5-15); BLOOD UREA NITROGEN 9 mg/dL (7-18); CALCIUM 8.4 MG/DL (8.5-10.1); CARBON DIOXIDE 26 MMOL/L (21-32); CHLORIDE 104 MMOL/L (98-107); CREATININE 0.5 MG/DL (0.55-1.30); INR 0.9 (0.9-1.1); POTASSIUM 3.9 MMOL/L (3.5-5.1); SODIUM 138 MMOL/L (136-145)
[2020-01-15 14:41] LABS: ALANINE AMINOTRANSFERASE 32 U/L (12-78); ALBUMIN 2.9 G/DL (3.4-5.0); ALKALINE PHOSPHATASE 33 U/L (46-116); ASPARTATE AMINO TRANSFERASE 19 U/L (15-37); BILIRUBIN,TOTAL 0.1 MG/DL (0.2-1.0)
--- NOTE | 2020-01-15 17:00 | NUR ---
ED Nurse Note: US @ bedside
--- NOTE | 2020-01-15 19:05 | NUR ---
ED Nurse Note: Report received from Georgina Dean RN
--- NOTE | 2020-01-15 19:05 | NUR ---
HAND-OFF: Report given to KRISSY Abrams. Pt in stable condition; plan of care endorsed.
[2020-01-15 19:29] VITALS: BP 110/72
--- NOTE | 2020-01-15 19:29 | NUR ---
ER DISCHARGE NOTE: Patient is cleared to be discharged per ERMD, pt is aox4, on room air, with stable vital signs. pt was given dc and prescription instructions, pt was able to verbalize understanding, pt id band removed . pt is able to ambulate with steady gait. pt took all belongings.
--- NOTE | 2020-01-15 20:12 | Diagnostic Imaging Report ---
EXAM: US Second Trimester , Transabdominal CLINICAL HISTORY: ABD PAIN TECHNIQUE: Real-time transabdominal obstetrical ultrasound of the maternal pelvis and a second trimester with image documentation. COMPARISON: None available. FINDINGS: Fetus: Single intrauterine gestation is noted. Heart rate: heart rate measures 144 bpm. Presentation: Fetus is cephalic positioning. Placenta: Unremarkable. No abruption. Position posteriorly. Amniotic fluid: Unremarkable. Anatomy: Limited anatomy as visualized is unremarkable. BIOMETRICS Gestational age: 19 weeks 0 days based on LMP. 17 weeks 3 days based on ultrasound OTTONIEL: 06/21/2020 EFW: 197 g, 17 weeks 3 days. Less than 3% estimated weight. BPD: 3.84 cm, 17 weeks 5 days. HC: 14.14 cm, 17 weeks 3 days AC: 11.50 cm, 17 weeks 2 days FL: 2.55 cm, 17 weeks 5 days MATERNAL: Uterus: Unremarkable. No myometrial mass. Cervix: Cervix measures 4.1 cm. Adnexa: Left ovary measures 4.4 x 2.0 x 3.3 cm. Right ovary measures 4.3 x 2.2 x 2.2 cm. Free fluid: No free fluid. Other findings: Mild right maternal hydronephrosis. IMPRESSION: 1. Mild right maternal renal hydronephrosis. 2. Single intrauterine with dates and weights as above notable for low estimated weight in variance and dates.
== END | disposition home or self-care (01) ==
LOC: EMR 13:50
DX: O26.892 Other specified pregnancy related conditions, second trimester (principal); Z3A.18 18 weeks gestation of pregnancy; R10.9 Unspecified abdominal pain; K92.1 Melena
CPT/HCPCS: 36415; 76805; 76817; 80053; 81003; 83690; 85025; 85610; 85730; 86900; 86901; Z7502; 99284

== ENCOUNTER 2020-08-22 21:16 | Emergency (ER) | payer MEDICAID ==
[~2020-08-22] VITALS: Ht 154.9 cm; Wt 63.5 kg
--- NOTE | 2020-08-22 21:39 | NUR ---
ED Nurse Note: Pt walked in from home, walks with a steady gait, vitals are stable on RA, speaks in full sentances, breathing is even and unlabored. Pt states that she took an at home urine pregnacy test and it was positve on 08/18. She says that she feels pain when she sneezes on her lower abdomen. She also states she feel short of breath when walking or on exertion. Denies having a positve covid test.
--- NOTE | 2020-08-22 22:03 | Emergency Room Report ---
History of Present Illness General Chief Complaint: Complications Source: Patient Present Illness HPI Presents with 1 week of intermittent right lower quadrant pain. She had a positive test August 18. Her last menstruation was on January after she had a stillbirth. She was on Depo. She has been nauseated and not eating well. The pain is 8/10 when she has it. It is fairly fleeting and somewhat positional. It does not radiate. She denies fevers or chills. She does not know her blood type. No change in bowel habits. She is not take any medication for the pain. She denies dysuria. No vaginal bleeding. She denies exposure to Covid positive contacts. No sore throat, chest pain, palpitations, vomiting, shortness of breath, joint pain, rashes, depression, anxiety, visual changes, dizziness, headache. Allergies: Coded Allergies: No Known Allergies (Unverified , 06/17/18) COVID-19 Screening Contact w/high risk pt: No Recent Travel to affected area: No Experienced COVID-19 symptoms?: No COVID-19 Testing performed [employer]: No COVID-19 Screening: Negative COVID-19 COVID-19 Testing Source: [facility] Patient History Past Medical History: see triage record, other - Stillbirth last year Social History: Reports: smoking - Stop when she learned she is , drug use - THC but stopped when she when she is Social History Narrative With significant other Now: Yes : 2 Para: 0 Reviewed Nursing Documentation: PMH: Agreed; PSxH: Agreed Nursing Documentation-PMH Past Medical History: No Stated History Hx Hypertension: No Hx Pacemaker: No Hx Asthma: No Hx COPD: No Hx Diabetes: No Hx Cancer: No Hx Gastrointestinal Problems: No Hx Dialysis: No Hx Neurological Problems: No Hx Cerebrovascular Accident: No Hx Seizures: No Review of Systems All Other Systems: negative except mentioned in HPI Physical Exam Vital Signs Date Time Temp Pulse Resp B/P (MAP) Pulse Ox O2 Delivery O2 Flow Rate FiO2 08/22/20 21:21 99.0 76 20 105/78 (87) 98 Sp02 EP Interpretation: reviewed, normal General Appearance: well appearing, no apparent distress, GCS 15 Head: normocephalic Eyes: bilateral eye normal inspection, bilateral eye PERRL, bilateral eye EOMI ENT: other - Wearing a mask Neck: supple Respiratory: lungs clear, normal breath sounds Cardiovascular #1: regular rate, rhythm Cardiovascular #2: 2+ radial (R) Gastrointestinal: normal inspection, normal bowel sounds, non tender, no mass, non-distended Genitourinary: no CVA tenderness, deferred - For ultrasound Musculoskeletal: back normal, normal range of motion, gait/station normal Neurologic: alert, oriented x3, grossly normal Psychiatric: mood/affect normal Skin: no rash, warm/dry Medical Decision Making Diagnostic Impression: Primary Impression: Abdominal pain Qualified Codes: R10.31 - Right lower quadrant pain Additional Impressions: UTI (urinary tract infection) Qualified Codes: N30.00 - Acute cystitis without hematuria 7 weeks gestation of ER Course Patient presents with history of positive test and right lower quadrant pain that is intermittent for 1 week. Differential includes ectopic, threatened miscarriage, appendicitis, torsion amongst others. Evaluation with labs and ultrasound. Patient treated with IV hydration. She denies pain at this time. Normal white count. Urinalysis with pyuria. Quantitative hCG 141,000. Blood type A +. Ultrasound reveals a viable 7-week intrauterine . No other abnormalities. Normal heart tones. Rocephin administered. Discussed results with patient and treatment plan. Patient stable for outpatient observation and treatment. Laboratory Tests Test 08/22/20 21:35 08/22/20 22:20 Urine Color Yellow Urine Appearance Slightly cloudy Urine pH 7 (4.5-8.0) Urine Specific [place] 1.015 (1.005-1.035) Urine Protein 2+ (NEGATIVE) H Urine Glucose (UA) Negative (NEGATIVE) Urine Ketones 3+ (NEGATIVE) H Urine Blood 1+ (NEGATIVE) H Urine Nitrite Negative (NEGATIVE) Urine Bilirubin Negative (NEGATIVE) Urine Urobilinogen 1 MG/DL (0.0-1.0) H Urine Leukocyte Esterase 3+ (NEGATIVE) H Urine RBC 2-4 /HPF (0 - 2) H Urine WBC 20-30 /HPF (0 - 2) H Urine Squamous Epithelial Cells Many /LPF (NONE/OCC) H Urine Bacteria Many /HPF (NONE) H White Blood Count 11.2 K/UL (4.8-10.8) H Red Blood Count 4.45 M/UL (4.20-5.40) Hemoglobin 13.5 G/DL (12.0-16.0) Hematocrit 41.1 % (37.0-47.0) Mean Corpuscular Volume 92 FL (80-99) Mean Corpuscular Hemoglobin 30.3 PG (27.0-31.0) Mean Corpuscular Hemoglobin Concent 32.8 G/DL (32.0-36.0) Red Cell Distribution Width 12.2 % (11.6-14.8) Platelet Count 304 K/UL (150-450) Mean Platelet Volume 6.5 FL (6.5-10.1) Neutrophils (%) (Auto) 64.2 % (45.0-75.0) Lymphocytes (%) (Auto) 27.9 % (20.0-45.0) Monocytes (%) (Auto) 6.4 % (1.0-10.0) Eosinophils (%) (Auto) 0.7 % (0.0-3.0) Basophils (%) (Auto) 0.9 % (0.0-2.0) Prothrombin Time 10.7 SEC (9.30-11.50) Prothrombin Time INR 1.0 (0.9-1.1) Activated Partial Thromboplast Time 25 SEC (23-33) Sodium Level 137 MMOL/L (136-145) Potassium Level 3.3 MMOL/L (3.5-5.1) L Chloride Level 103 MMOL/L (98-107) Carbon Dioxide Level 26 MMOL/L (21-32) Anion Gap 8 mmol/L (5-15) Blood Urea Nitrogen 9 mg/dL (7-18) Creatinine 0.7 MG/DL (0.55-1.30) Estimated Glomerular Filtration Rate > 60 mL/min (>60) Glucose Level 78 MG/DL (74-106) Calcium Level 9.2 MG/DL (8.5-10.1) Total Bilirubin 0.4 MG/DL (0.2-1.0) Aspartate Amino Transferase (AST) 13 U/L (15-37) L Alanine Aminotransferase (ALT) 15 U/L (12-78) Alkaline Phosphatase 37 U/L (46-116) L Total Protein 6.9 G/DL (6.4-8.2) Albumin 3.9 G/DL (3.4-5.0) Globulin 3.0 g/dL Albumin/Globulin Ratio 1.3 (1.0-2.7) Lipase 162 U/L (73-393) Human Chorionic Gonadotropin, Quant 119806 mIU/mL (1-6) H CT/MRI/US Diagnostic Results CT/MRI/US Diagnostic Results : Imaging Test Ordered: Pelvic ultrasound Impression Impression: 1. Single live intrauterine at 7 weeks 0 day corresponding to OTTONIEL of 04/10/2021. 2. Small subchorionic hemorrhage. Last Vital Signs Date Time Temp Pulse Resp B/P (MAP) Pulse Ox O2 Delivery O2 Flow Rate FiO2 08/23/20 00:16 98.3 88 16 122/83 99 Room Air Status: improved Disposition: HOME, SELF-CARE Condition: Improved Scripts Pnv No.115/Iron Fumarate/FA ( 19 Chewable Tablet) 1 Each Tab.chew 1 EACH PO DAILY, #30 TAB Prov: Ben Sarmiento MD 08/23/20 Promethazine Hcl* (PHENERGAN*) 25 Mg Tablet 25 MG ORAL Q8HR PRN for Nausea & Vomiting, #10 TAB 1 Refill Prov: Ben Sarmiento MD 08/23/20 Acetaminophen (Tylenol) 325 Mg Tablet 650 MG ORAL Q6H PRN for Prn Pain/Headache/Temp > 101, #20 TAB 0 Refills Prov: Ben Sarmiento MD 08/23/20 Nitrofurantoin Monohyd/M-Cryst* (MACROBID 100 MG*) 100 Mg Capsule 100 MG ORAL EVERY 12 HOURS, #14 CAP Prov: Ben Sarmiento MD 08/23/20 Referrals: [facility],REFERRIN (PCP) Ben Sarmiento MD Aug 22, 2020 22:03
[2020-08-22 22:20] LABS: BILIRUBIN, URINE NEGATIVE (NEGATIVE); GLUCOSE, URINE (UA) NEGATIVE (NEGATIVE); KETONES,URINE 3+ (NEGATIVE); LEUKOCYTE ESTERASE ,URINE 3+ (NEGATIVE); NITRITE,URINE NEGATIVE (NEGATIVE); PH,URINE 7 (4.5-8.0); PROTEIN,URINE 2+ (NEGATIVE); UROBILINOGEN,URINE 1 MG/DL (0.0-1.0)
[2020-08-22 22:22] LABS: APPEARANCE,URINE SLIGHTLY CLOUDY; COLOR,URINE YELLOW
[2020-08-22] MEDS ORDERED: cefTRIAXone 1 GM in NS 55 ML IVPB ONE (22:30)
[2020-08-22 22:58] LABS: BASOPHILS % (AUTO) 0.9 % (0.0-2.0); EOSINOPHILS % (AUTO) 0.7 % (0.0-3.0); HEMATOCRIT 41.1 % (37.0-47.0); HEMOGLOBIN 13.5 G/DL (12.0-16.0); LYMPHOCYTES % (AUTO) 27.9 % (20.0-45.0); MEAN CORPUSCULAR VOLUME 92 FL (80-99); MONOCYTES % (AUTO) 6.4 % (1.0-10.0); NEUTROPHILS % (AUTO) 64.2 % (45.0-75.0); PLATELET COUNT 304 K/UL (150-450); RED BLOOD COUNT 4.45 M/UL (4.20-5.40); RED CELL DISTRIBUTION WIDTH 12.2 % (11.6-14.8); WHITE BLOOD COUNT 11.2 K/UL (4.8-10.8)
[2020-08-22 23:15] LABS: ANION GAP 8 mmol/L (5-15); BLOOD UREA NITROGEN 9 mg/dL (7-18); CALCIUM 9.2 MG/DL (8.5-10.1); CARBON DIOXIDE 26 MMOL/L (21-32); CHLORIDE 103 MMOL/L (98-107); CREATININE 0.7 MG/DL (0.55-1.30); POTASSIUM 3.3 MMOL/L (3.5-5.1); SODIUM 137 MMOL/L (136-145)
--- NOTE | 2020-08-22 23:18 | NUR ---
ED Nurse Note: US at bedside
[2020-08-22 23:19] LABS: ALANINE AMINOTRANSFERASE 15 U/L (12-78); ALBUMIN 3.9 G/DL (3.4-5.0); ALBUMIN/GLOBULIN RATIO 1.3 (1.0-2.7); ALKALINE PHOSPHATASE 37 U/L (46-116); ASPARTATE AMINO TRANSFERASE 13 U/L (15-37); BILIRUBIN,TOTAL 0.4 MG/DL (0.2-1.0)
[2020-08-23] MEDS ORDERED: TYLENOL325 MG ORAL (00:06)
[2020-08-23] MEDS ORDERED: PHENERGAN25 M1 ORAL (00:06)
[2020-08-23] MEDS ORDERED: PRENATAL 19 CH1 EAC1 PO (00:06)
[2020-08-23] MEDS ORDERED: NITROFURANTOIN100 M2 ORAL (00:06)
--- NOTE | 2020-08-23 00:06 | NUR ---
ED Nurse Note: PT is resting talking on the phone with her significant other. vitals stable on RA
--- NOTE | 2020-08-23 00:15 | NUR ---
ER DISCHARGE NOTE: Patient is cleared to be discharged per ERMD, pt is aox4, on room air, with stable vital signs. pt was given dc and prescription instructions, pt was able to verbalize understanding, pt id band and iv site removed without complications. pt is able to ambulate with steady gait. pt took all belongings. Pt left with significant other in a private car
[2020-08-23 00:16] VITALS: BP 122/83
--- NOTE | 2020-08-23 00:29 | Diagnostic Imaging Report ---
Limited OB ultrasound History: Abdominal pain Findings: Uterus is anteverted measuring 10.6 x 6 cm. Gestational sac with yolk sac and pole are identified. cardiac activity of 134 bpm Small superior subchorionic hemorrhage. Normal bilateral ovaries No pelvic free fluid. Impression: 1. Single live intrauterine at 7 weeks 0 day corresponding to OTTONIEL of 04/10/2021. 2. Small subchorionic hemorrhage.
== END 2020-08-23 00:17 | disposition home or self-care (01) ==
LOC: EMR 21:47
DX: O23.11 Infections of bladder in pregnancy, first trimester (principal); O26.891 Other specified pregnancy related conditions, first trimester; R10.31 Right lower quadrant pain; Z3A.01 Less than 8 weeks gestation of pregnancy
CPT/HCPCS: 36415; 76801; 76817; 80053; 81003; 83690; 84702; 85025; 85610; 85730; 86850; 86900; 86901; 87086; 96361; 96365; J0696; J7030; Z7502; 99284